=== PATIENT | male | born 1950 | race Caucasian/White ===

== ENCOUNTER 2020-09-07 12:32 | Inpatient (IN) | payer OTHER ==
[~2020-09-07] VITALS: Ht 180.3 cm; Wt 117.9 kg
[~2020-09-07 12:32] MED LIST: ADDERALL 20 MG20 MG; AMANTADINE100 MG; BENAZEPRIL HCL20 MG; CARVEDILOL25 MG; CELEBREX50 MG; FUROSEMIDE20 MG; PROZAC20 MG; SIMVASTATIN40 MG
[2020-09-07] MEDS ORDERED: GLIPIZIDE XL10 MG (19:58)
[2020-09-07] MEDS ORDERED: CARVEDILOL25 M1 (19:59)
[2020-09-07] MEDS ORDERED: LOSARTAN POTASS25 MG (19:59)
[2020-09-07] MEDS ORDERED: HYDROCHLOROTHIA25 MG (19:59)
[2020-09-07] MEDS ORDERED: LATUDA60 MG (19:59)
[2020-09-11] MEDS ORDERED: INTEGRA CAPSUL1 EACH PO (13:20)
[2020-09-11] MEDS ORDERED: B-121000 MC1 PO (13:20)
== END 2020-09-11 13:57 | disposition home or self-care (01) | DRG 392 ==
LOC: ER 12:32 → MEDI 19:48
PROVIDERS: ADMIT Internal Medicine; ATTEND Internal Medicine
PROC: 30233N1 Transfusion of Nonautologous Red Blood Cells into Peripheral Vein, Percutaneous Approach (ICD-10-PCS; principal; 2020-09-07)
PROC: 0DB58ZX Excision of Esophagus, Via Natural or Artificial Opening Endoscopic, Diagnostic (ICD-10-PCS; 2020-09-10)
PROC: 0DB68ZX Excision of Stomach, Via Natural or Artificial Opening Endoscopic, Diagnostic (ICD-10-PCS; 2020-09-10)
DX: K44.9 Diaphragmatic hernia without obstruction or gangrene (principal); R10.13 Epigastric pain; K29.00 Acute gastritis without bleeding; I10 Essential (primary) hypertension; E11.9 Type 2 diabetes mellitus without complications; Z79.4 Long term (current) use of insulin; E66.8 Other obesity; E03.8 Other specified hypothyroidism; F32.89 Other specified depressive episodes; E87.6 Hypokalemia

== ENCOUNTER 2020-12-15 09:09 | Outpatient (CLI) | payer OTHER ==
[~2020-12-15 09:09] MED LIST changes: +B-121000 MC1 PO; +CARVEDILOL25 M1; +GLIPIZIDE XL10 MG; +HYDROCHLOROTHIA25 MG; +INTEGRA CAPSUL1 EACH PO; +LATUDA60 MG; +LOSARTAN POTASS25 MG
== END 2020-12-15 09:10 | disposition home or self-care (01) ==
LOC: LAB 09:09
PROVIDERS: ATTEND Internal Medicine Hematology & Oncology
DX: D50.8 Other iron deficiency anemias (principal); R79.89 Other specified abnormal findings of blood chemistry; I10 Essential (primary) hypertension; R74.02 Elevation of levels of lactic acid dehydrogenase [LDH]; K76.89 Other specified diseases of liver; D63.1 Anemia in chronic kidney disease; E78.2 Mixed hyperlipidemia; E03.8 Other specified hypothyroidism; D50.0 Iron deficiency anemia secondary to blood loss (chronic); E08.65 Diabetes mellitus due to underlying condition with hyperglycemia; Z87.11 Personal history of peptic ulcer disease; K26.4 Chronic or unspecified duodenal ulcer with hemorrhage

== ENCOUNTER 2021-04-13 11:06 | Outpatient (CLI) | payer OTHER | END 2021-04-13 11:07 | disposition home or self-care (01) | LOC: LAB 11:06 | PROVIDERS: ATTEND Internal Medicine Hematology & Oncology | DX: D50.8 Other iron deficiency anemias (principal); R79.9 Abnormal finding of blood chemistry, unspecified; I10 Essential (primary) hypertension; R74.02 Elevation of levels of lactic acid dehydrogenase [LDH]; K76.89 Other specified diseases of liver; D51.8 Other vitamin B12 deficiency anemias; D63.1 Anemia in chronic kidney disease; E03.8 Other specified hypothyroidism; R97.0 Elevated carcinoembryonic antigen [CEA]; R97.8 Other abnormal tumor markers; R97.20 Elevated prostate specific antigen [PSA]; D50.0 Iron deficiency anemia secondary to blood loss (chronic); E08.65 Diabetes mellitus due to underlying condition with hyperglycemia; Z87.11 Personal history of peptic ulcer disease; K26.4 Chronic or unspecified duodenal ulcer with hemorrhage; K25.9 Gastric ulcer, unspecified as acute or chronic, without hemorrhage or perforation; K29.61 Other gastritis with bleeding; K44.9 Diaphragmatic hernia without obstruction or gangrene ==

== ENCOUNTER 2025-02-06 19:16 | Emergency (ER) | payer OTHER ==
[~2025-02-06] VITALS: Ht 180.3 cm; Wt 124.3 kg
[2025-02-06] MEDS ORDERED: IPRATROPIUM BROMIDE 0.5 MG/2.5 ML AMPUL.NEB IH SCH (21:00)
[2025-02-06] MEDS ORDERED: LEVALBUTEROL HCL 1.25 MG/3 ML SOLUTION IH SCH (21:00)
[2025-02-06] MEDS ORDERED: METHYLPREDNISOLONE SOD SUCC 125 MG VIAL IV ONE (21:00)
[2025-02-06] MEDS ORDERED: ACETAMINOPHEN 500 MG GEL..CAP PO ONE ×2 (21:00→21:46)
[2025-02-06] MEDS ORDERED: METHYLPREDNISOLONE SOD SUCC 125 MG VIAL ONE (21:46)
[2025-02-06] MEDS ORDERED: LEVALBUTEROL HCL 1.25 MG/3 ML SOLUTION IH ONE (22:03)
[2025-02-06] MEDS ORDERED: IPRATROPIUM BROMIDE 0.5 MG/2.5 ML AMPUL.NEB IH ONE (22:03)
[2025-02-06 22:21] LABS: BASO % 1.2 % (0.1-1.2); EOS # 0.44 (0.04-0.54); EOS % 4.4 % (0.7-7.0); LYMPH # 1.48 (1.18-3.74); LYMPH % 14.7 % (19.3-53.1); MEAN PLATELET VOLUME 9.90 fl (9.4-12.4); MONO # 0.69 (0.24-0.82); MONO % 6.8 % (4.7-12.5); NEUT # 7.29 (1.56-6.13); NEUT % 72.3 % (34.0-71.1); RED CELL DISTRIBUTION WIDTH 12.8 % (11.6-14.4)
[2025-02-06 23:21] LABS: COVID-19 AG NEGATIVE (NEGATIVE)
== END 2025-02-07 03:16 | disposition home or self-care (01) ==
LOC: ER 19:17
PROVIDERS: General Practice
DX: J06.9 Acute upper respiratory infection, unspecified (principal); I10 Essential (primary) hypertension; E03.8 Other specified hypothyroidism; J32.9 Chronic sinusitis, unspecified; Z20.822 Contact with and (suspected) exposure to COVID-19